=== PATIENT | male | born 1980 | race Caucasian/White ===

== ENCOUNTER 2024-01-08 13:08 | Emergency (ER) | payer OTHER ==
[~2024-01-08] VITALS: Ht 172.7 cm; Wt 89.0 kg
[2024-01-08 13:50] VITALS: BP 132/67; PULSE 73; RESP 16; TEMP 98.1
[2024-01-08] MEDS: KETOROLAC TROMETHAMINE 60 MG/2 ML VIAL IM ONE (14:57)
[2024-01-08] MEDS: LIDOCAINE 1% 10 ML VIAL SQ ONE (14:57)
[2024-01-08] MEDS: BACITRACIN 0.9 GM PACKET OINTMENT TP ONE (14:57)
[2024-01-08] MEDS ORDERED: CEPH-558 PO (16:30)
[2024-01-08] MEDS ORDERED: CYCL-448 PO (16:30)
[2024-01-08] MEDS ORDERED: DOXY-354 PO (16:30)
[2024-01-08] MEDS ORDERED: IBUP-1554 PO (16:30)
== END 2024-01-08 17:05 | disposition home or self-care (01) ==
LOC: EMS 13:08
DX: S61.211A Laceration without foreign body of left index finger without damage to nail, initial encounter (principal); S63.287A Dislocation of proximal interphalangeal joint of left little finger, initial encounter; L05.01 Pilonidal cyst with abscess; Y08.89XA Assault by other specified means, initial encounter; Y93.89 Activity, other specified; Y92.89 Other specified places as the place of occurrence of the external cause; Y99.8 Other external cause status
CPT/HCPCS: 99284; 26770; 73090; 73130; 96372; J1885; J3490

== ENCOUNTER 2024-01-20 18:19 | Emergency (ER) | payer OTHER ==
[~2024-01-20] VITALS: Ht 170.2 cm; Wt 75.0 kg
[~2024-01-20 18:19] MED LIST: CEPH-558 PO; CYCL-448 PO; DOXY-354 PO; IBUP-1554 PO
[2024-01-20 18:35] VITALS: TEMP 98
[2024-01-20] MEDS ORDERED: BUPR1TAB45 SL (18:41)
[2024-01-20] MEDS: IBUPROFEN 600 MG TABLET PO ONE (19:34)
[2024-01-20 20:27] VITALS: BP 131/78; PULSE 78; RESP 16
== END 2024-01-20 20:30 | disposition home or self-care (01) ==
LOC: EMS 18:56
DX: S63.277A Dislocation of unspecified interphalangeal joint of left little finger, initial encounter (principal); J45.909 Unspecified asthma, uncomplicated; Z48.02 Encounter for removal of sutures; X58.XXXA Exposure to other specified factors, initial encounter; Y93.89 Activity, other specified; Y92.89 Other specified places as the place of occurrence of the external cause; Y99.8 Other external cause status
CPT/HCPCS: 26770; 99284; 73120-TC; 73130-TC; Z7502; Z7610

== ENCOUNTER 2024-03-04 19:25 | Emergency (ER) | payer OTHER ==
[~2024-03-04] VITALS: Ht 170.2 cm; Wt 81.8 kg
[~2024-03-04 19:25] MED LIST changes: +BUPR1TAB45 SL; -CEPH-558 PO; -CYCL-448 PO; -DOXY-354 PO; -IBUP-1554 PO
[2024-03-04 19:59] VITALS: BP 124/71; PULSE 89; RESP 16; TEMP 98.3
[2024-03-04] MEDS ORDERED: DOXY-354 PO (21:51)
[2024-03-04] MEDS ORDERED: CEPH-558 PO (21:51)
[2024-03-04] MEDS: CEPHALEXIN MONOHYDRATE 500 MG CAPSULE PO ONE (22:12)
== END 2024-03-04 22:14 | disposition home or self-care (01) ==
LOC: EMS 19:25
DX: L02.12 Furuncle of neck (principal); Z98.890 Other specified postprocedural states
CPT/HCPCS: 10060; 99283

== ENCOUNTER → 2025-05-21 | Emergency (ER) | payer OTHER ==
[~2025-05-21] VITALS: Ht 170.2 cm; Wt 81.8 kg
[~2025-05-21] MED LIST changes: +CEPH-558 PO; +DOXY-354 PO
[2025-05-21 21:02] VITALS: TEMP 98.2
[2025-05-21] MEDS: KETOROLAC TROMETHAMINE 30 MG/ML VIAL IM ONE (22:40)
[2025-05-21 23:05] VITALS: BP 121/75; PULSE 85; RESP 18; O2SAT 98
== END | disposition still patient (30) ==
LOC: EMS 20:58
DX: M25.522 Pain in left elbow (principal); J45.909 Unspecified asthma, uncomplicated; Z86.61 Personal history of infections of the central nervous system; Z79.891 Long term (current) use of opiate analgesic; Z79.899 Other long term (current) drug therapy
CPT/HCPCS: 99283; 73070; 96372; J1885